=== PATIENT | male | born 2000 | race Caucasian/White ===

== ENCOUNTER 2021-12-12 12:48 | Observation (INO) | payer OTHER ==
[2021-12-12] MEDS ORDERED: MORPHINE 4 MG/ML SYR ONE (13:52)
[2021-12-12] MEDS ORDERED: ONDANSETRON 4 MG/2 ML VIAL ONE (13:52)
[2021-12-12] MEDS ORDERED: NA CHLORIDE 0.9% 1,000 ML ONE (13:52)
[2021-12-12] MEDS ORDERED: FAMOTIDINE 20 MG/2 ML VIAL IV ONE (13:53)
[2021-12-12 14:13] LABS: Absolute Lymphocytes (CBC) 0.7 K/uL (0.7-4.9); Lymphocytes % 18.9 % (15.3-44.8); MPV 8.7 fL (7.6-11.3); RBC Red Blood Cell Count 4.54 M/uL (4.33-5.43)
[2021-12-12 14:20] LABS: Bilirubin Direct 0.1 mg/dL (0-0.2); Bilirubin Total 0.4 mg/dL (0.2-1.0); Potassium 4.1 mmol/L (3.5-5.1); Protein, Total 7.5 g/dL (6.4-8.2)
[2021-12-12 14:53] LABS: SARS-COV-2 RT PCR NEGATIVE (NEGATIVE)
--- NOTE | 2021-12-12 16:17 | RAD REPORT ---
EXAM DESCRIPTION: CT - Abdomen Pelvis W Contrast - 12/12/2021 3:44 pm CLINICAL HISTORY: Abdominal pain. COMPARISON: None. TECHNIQUE: Computed axial tomography of the abdomen and pelvis was obtained. 100 cc Isovue-300 is ad ministered intravenously. Oral contrast was given. All CT scans are performed using dose optimization technique as appropriate and may include automated exposure control or mA/KV adjustment according to patient size. FINDINGS: The liver, spleen, pancreas, adrenals and kidneys appear unremarkable. There is no evidence of diverticulitis Proximal, mid and portion of the distal appendix are filled with contrast and are normal. The distal appendix is on opacified with contrast and is mildly thickened. No stranding within the adjacent fat. IMPRESSION: Proximal, mid and portion of the distal appendix are filled with contrast and are normal . The distal appendix is on opacified with contrast and is mildly thickened. No stranding within the adjacent fat. These findings could indicate a distal tip appendicitis and should be correlated clinically
[2021-12-12] MEDS ORDERED: PIPERACIL/TAZO 3.375 GM VIAL IV ONE (17:24)
[2021-12-12] MEDS ORDERED: NA CHLORIDE 0.9% 100 ML IV ONE (17:24)
[2021-12-12 17:37] LABS: Blood Morphology Comment NOT SEEN (NOT SEEN); Platelet Estimate ADEQ; White Blood Cell Scan OK (OK)
--- NOTE | 2021-12-12 17:40 | EDPHYS ---
Physician Documentation [facility] Name: Henry Vee Age: 21 yrs Sex: Male : 2000 Arrival Date: 12/12/2021 Time: 12:52 Bed 7 Private MD: ED Physician Tavo Manzano HPI: 12/12 13:55 This 21 yrs old Male presents to ER via Ambulatory with complaints of Abdominal Pain. cp 13:55 The patient presents with abdominal pain that is diffuse. cp 13:55 Onset: The symptoms/episode began/occurred 3 day(s) ago. cp 13:55 The symptoms radiate to low back. Associated signs and symptoms: Pertinent positives: cp anorexia, constipation, nausea, Pertinent negatives: diarrhea, dysuria, fever, hematuria, testicular pain, vomiting. The symptoms are described as constant. Historical: - Allergies: 13:34 No Known Allergies; ap3 - Home Meds: 13:34 None [Active]; ap3 - PMHx: 13:34 None; ap3 - Immunization history:: Client reports having NOT received the Covid vaccine. Flu vaccine is not up to date. - Social history:: Smoking status: Patient reports the use of cigarette tobacco products, denies chronic smoking, but will smoke occasionally, Patient uses alcohol, occasionally. ROS: 14:00 Constitutional: Negative for body aches, chills, fever, poor PO intake. cp 14:00 Respiratory: Negative for cough, shortness of breath, wheezing. cp 14:00 Abdomen/GI: Positive for abdominal pain, nausea, constipation, anorexia, Negative for cp vomiting, diarrhea. 14:00 Eyes: Negative for injury, pain, redness, and discharge. cp 14:00 ENT: Negative for drainage from ear(s), ear pain, sore throat, difficulty swallowing, difficulty handling secretions. 14:00 Cardiovascular: Negative for chest pain. 14:00 Back: Positive for radiated pain, of the low back. 14:00 : Negative for urinary symptoms, testicular pain 14:00 Neuro: Negative for altered mental status, headache, weakness. 14:00 All other systems are negative. Exam: 14:05 Constitutional: The patient appears in no acute distress, alert, awake, non-toxic, well cp developed, well nourished, uncomfortable. 14:05 Head/Face: Normocephalic, atraumatic. cp 14:05 Eyes: Periorbital structures: appear normal, Conjunctiva: normal, no exudate, no injection, Sclera: no appreciated abnormality, Lids and lashes: appear normal, bilaterally. 14:05 ENT: External ear(s): are unremarkable, Nose: is normal, Mouth: Lips: moist, Oral mucosa: moist, Posterior pharynx: Airway: no evidence of obstruction, patent. 14:05 Chest/axilla: Inspection: normal, Palpation: is normal, no crepitus, no tenderness. 14:05 Cardiovascular: Rate: normal, Rhythm: regular. 14:05 Respiratory: the patient does not display signs of respiratory distress, Respirations: normal, no use of accessory muscles, no retractions, labored breathing, is not present, Breath sounds: are clear throughout, no decreased breath sounds, no stridor, no wheezing. 14:05 Abdomen/GI: Inspection: abdomen appears normal, Bowel sounds: active, all quadrants, Palpation: soft, in all quadrants, moderate abdominal tenderness, in the umbilical area, right lower quadrant and left lower quadrant, rebound tenderness, is not appreciated, voluntary guarding, is elicited in the umbilical area, right lower quadrant and left lower quadrant. Vital Signs: 13:32 BP 133 / 85; Pulse 80; Resp 17; Temp 98.6; Pulse Ox 100% ; Weight 79.38 kg; Height 6 ap3 ft. 1 in. (185.42 cm); Pain 4/10; 13:40 BP 122 / 78; Pulse 67; Resp 17 S; Pulse Ox 100% on R/A; Pain 6/10; jg9 14:30 BP 136 / 80; Pulse 65; Resp 17; Pulse Ox 99% on R/A; Pain 5/10; jg9 14:45 BP 136 / 75; Pulse 68; Resp 17 S; Pulse Ox 97% on R/A; jg9 15:15 BP 118 / 71; Pulse 69; Resp 17 S; Pulse Ox 97% on R/A; jg9 16:15 BP 118 / 68; Pulse 70; Resp 16 S; Pulse Ox 97% on R/A; jg9 17:54 BP 111 / 72; Pulse 69; Resp 16; Pulse Ox 100% on R/A; ab2 18:45 BP 108 / 67; Pulse 59; Pulse Ox 98% on R/A; jg9 13:32 Body Mass Index 23.09 (79.38 kg, 185.42 cm) ap3 MDM: 13:47 Patient medically screened. cp 14:15 Differential diagnosis: appendicitis, cholecystitis, Cholelithiasis, diverticulitis, cp gastritis, non-specific abd pain, Pyelonephritis, Testicular Torsion, Ureterolithiasis, urinary tract infection. 16:31 Physician consultation: Lanre Addison MD was called at 16:30, left message on voicemail.cp 16:35 Data reviewed: vital signs, nurses notes, lab test result(s), radiologic studies, CT cp scan. 12/12 13:46 Order name: Basic Metabolic Panel; Complete Time: 15:00 12/12 15:00 Interpretation: Normal except: NA 134; GFR 79. 12/12 13:46 Order name: CBC with Diff 12/12 15:00 Interpretation: Normal except: WBC 3.80; PLT 133; MN% 24.3. 12/12 13:46 Order name: Hepatic Function; Complete Time: 15:00 12/12 13:46 Order name: Lipase; Complete Time: 15:00 12/12 13:46 Order name: COVID-19/FLU A+B (Document "Date of Onset" if Symptomatic); Complete Time: cp 16:24 12/12 16:25 Interpretation: Reviewed. 12/12 17:37 Order name: CBC Smear Scan [facility] 12/12 17:39 Order name: Urine Microscopic Only 12/12 17:39 Order name: Urine Microscopic Only [facility] 12/12 18:40 Order name: Urine Dipstick-Ancillary [facility] 12/12 19:24 Order name: Basic Metabolic Panel [facility] 12/12 19:24 Order name: Basic Metabolic Panel [facility] 12/12 19:25 Order name: CBC with Automated Diff [facility] 12/12 19:25 Order name: Lipase [facility] 12/12 19:25 Order name: Lipase [facility] 12/12 13:46 Order name: IV Saline Lock; Complete Time: 13:48 12/12 13:46 Order name: Labs collected and sent; Complete Time: 13:53 12/12 14:04 Order name: CT Abd/Pelvis - PO and IV Contrast; Complete Time: 16:24 12/12 16:25 Interpretation: Report reviewed. cp 12/12 17:39 Order name: Urine Dipstick-Ancillary (obtain specimen); Complete Time: 18:54 cp 12/12 19:24 Order name: NPO [facility] 12/12 19:25 Order name: Liver (Hepatic) Function [facility] 12/12 19:25 Order name: Liver (Hepatic) Function ED[facility] 12/12 19:25 Order name: CBC with Automated Diff EDMS Administered Medications: 13:50 Drug: NS 0.9% 1000 ml Route: IV; Rate: 1 bolus; Site: left antecubital; jg9 15:01 Follow up: IV Status: Completed infusion; IV Intake: 1000ml jg9 13:53 Drug: Zofran (Ondansetron) 4 mg Route: IVP; Site: left antecubital; jg9 15:01 Follow up: Response: No adverse reaction jg9 13:55 Drug: morphine 4 mg {Note: RASS-o.} Route: IVP; Site: left antecubital; jg9 15:01 Follow up: Response: No adverse reaction; Pain is decreased jg9 13:55 Drug: Pepcid (famotidine) 20 mg Route: IVP; Site: left antecubital; jg9 15:01 Follow up: Response: No adverse reaction; Pain is decreased jg9 17:25 Drug: Zosyn (piperacillin-tazobactam) 3.375 grams Route: IVPB; Infused Over: 60 mins; ab2 Site: left antecubital; 18:30 Follow up: IV Status: Completed infusion; IV Intake: 100ml jg9 Disposition: 19:40 Co-signature as Attending Physician, Tavo Manzano MD I agree with the assessment and kdr plan of care. Disposition Summary: 12/12/21 17:39 Hospitalization Ordered Hospitalization Status: Observation cp Provider: Lnare Addison cp Location: Telemetry/MedSurg (observation) cp Condition: Stable cp Problem: new cp Symptoms: have improved cp Bed/Room Type: Standard cp Room Assignment: 204(12/12/21 19:56) mw Diagnosis - Unspecified acute appendicitis cp Forms: - Medication Reconciliation Form cp - SBAR form cp Signatures: Dispatcher [facility] Mary Garcia RN RN mw Rittger, Kevin, MD MD [facility] Kehinde Pressley PA PA cp Hilary Hernandez, RN RN ap3 Paige Cain RN RN jg9 Tony Kay2 Corrections: (The following items were deleted from the chart) 17:15 16:31 NPO ordered. cp cp 19:56 17:39 cp mw
--- NOTE | 2021-12-12 17:40 | ER ---
Nurse's Notes [facility] Name: Henry Vee Age: 21 yrs Sex: Male : 2000 Arrival Date: 12/12/2021 Time: 12:52 Bed 7 Private MD: Diagnosis: Unspecified acute appendicitis Presentation: 12/12 13:32 Chief complaint: Patient states: he started having abdominal pain Sunday12/09/21. ap3 Patient reports the pain is primarily in his left lower quadrant with radiation into his epigastric area. Last BM is reported to be 12/10/2021. Coronavirus screen: At this time, the client does not indicate any symptoms associated with coronavirus-19. Ebola Screen: No symptoms or risks identified at this time. Initial Sepsis Screen: Does the patient meet any 2 criteria? No. Patient's initial sepsis screen is negative. Does the patient have a suspected source of infection? No. Patient's initial sepsis screen is negative. Risk Assessment: Do you want to hurt yourself or someone else? Patient reports no desire to harm self or others. Onset of symptoms was December 09, 2021. 13:32 Method Of Arrival: Ambulatory ap3 13:32 Acuity: SHARON 3 ap3 Triage Assessment: 13:34 General: Appears in no apparent distress. Behavior is calm, cooperative, appropriate ap3 for age. Pain: Complains of pain in left lower quadrant Pain radiates to epigastric area, right upper quadrant, left upper quadrant and right lower quadrant Pain began gradually, 2-3 days ago. Neuro: Level of Consciousness is awake, alert, obeys commands, Oriented to person, place, time, situation, Gait is steady. GI: Reports lower abdominal pain, upper abdominal pain, nausea. Historical: - Allergies: 13:34 No Known Allergies; ap3 - Home Meds: 13:34 None [Active]; ap3 - PMHx: 13:34 None; ap3 - Immunization history:: Client reports having NOT received the Covid vaccine. Flu vaccine is not up to date. - Social history:: Smoking status: Patient reports the use of cigarette tobacco products, denies chronic smoking, but will smoke occasionally, Patient uses alcohol, occasionally. Screenin:35 Abuse screen: Denies threats or abuse. Nutritional screening: No deficits noted. ap3 Tuberculosis screening: No symptoms or risk factors identified. Fall Risk None identified. No fall in past 12 months (0 pts). Assessment: 13:47 GI: Bowel sounds present X 4 quads. Abd is soft Abdomen is tender to palpation X 4 jg9 quads. 14:35 Reassessment: Patient states symptoms have improved. jg9 17:00 Reassessment: No changes from previously documented assessment. jg9 19:27 General: Appears in no apparent distress. Behavior is calm, cooperative. Neuro: No sm5 deficits noted. Level of Consciousness is awake, alert, obeys commands, Oriented to person, place, time, situation. Cardiovascular: No deficits noted. Capillary refill < 3 seconds Patient's skin is warm and dry. Respiratory: No deficits noted. Airway is patent Trachea midline Respiratory effort is even, unlabored. GI: Reports upper abdominal pain. 20:43 Reassessment: Patient and/or family updated on plan of care and expected duration. Pain sm5 level reassessed. Vital Signs: 13:32 BP 133 / 85; Pulse 80; Resp 17; Temp 98.6; Pulse Ox 100% ; Weight 79.38 kg; Height 6 ap3 ft. 1 in. (185.42 cm); Pain 4/10; 13:40 BP 122 / 78; Pulse 67; Resp 17 S; Pulse Ox 100% on R/A; Pain 6/10; jg9 14:30 BP 136 / 80; Pulse 65; Resp 17; Pulse Ox 99% on R/A; Pain 5/10; jg9 14:45 BP 136 / 75; Pulse 68; Resp 17 S; Pulse Ox 97% on R/A; jg9 15:15 BP 118 / 71; Pulse 69; Resp 17 S; Pulse Ox 97% on R/A; jg9 16:15 BP 118 / 68; Pulse 70; Resp 16 S; Pulse Ox 97% on R/A; jg9 17:54 BP 111 / 72; Pulse 69; Resp 16; Pulse Ox 100% on R/A; ab2 18:45 BP 108 / 67; Pulse 59; Pulse Ox 98% on R/A; jg9 13:32 Body Mass Index 23.09 (79.38 kg, 185.42 cm) ap3 ED Course: 12:52 Patient arrived in ED. kz 13:34 Triage completed. ap3 13:35 Arm band placed on left wrist. ap3 13:36 [facility]. cp 13:36 Tavo Manzano MD is Attending Physician. cp 13:45 Paige Cain, STARLA is Primary Nurse. jg9 13:45 Inserted saline lock: 18 gauge in left antecubital area, using aseptic technique. Blood jg9 collected. 13:47 Patient has correct armband on for positive identification. Bed in low position. Call jg9 light in reach. 13:53 COVID-19/FLU A+B (Document "Date of Onset" if Symptomatic) Sent. ab2 13:53 Lipase Sent. ab2 13:53 Basic Metabolic Panel Sent. ab2 13:53 CBC with Diff Sent. ab2 13:53 Hepatic Function Sent. ab2 14:35 No apparent distress. Resting quietly. jg9 15:43 CT Abd/Pelvis - PO and IV Contrast In Process Unspecified. EDMS 17:00 No apparent distress. Resting quietly. jg9 17:09 Awaiting re-evaluation by ER provider. jg9 17:39 Lanre Addison MD is Hospitalizing Provider. cp 18:22 Urine Microscopic Only Sent. jg9 20:44 No provider procedures requiring assistance completed. Patient admitted, IV remains in sm5 place. Administered Medications: 13:50 Drug: NS 0.9% 1000 ml Route: IV; Rate: 1 bolus; Site: left antecubital; jg9 15:01 Follow up: IV Status: Completed infusion; IV Intake: 1000ml jg9 13:53 Drug: Zofran (Ondansetron) 4 mg Route: IVP; Site: left antecubital; jg9 15:01 Follow up: Response: No adverse reaction jg9 13:55 Drug: morphine 4 mg {Note: RASS-o.} Route: IVP; Site: left antecubital; jg9 15:01 Follow up: Response: No adverse reaction; Pain is decreased jg9 13:55 Drug: Pepcid (famotidine) 20 mg Route: IVP; Site: left antecubital; jg9 15:01 Follow up: Response: No adverse reaction; Pain is decreased jg9 17:25 Drug: Zosyn (piperacillin-tazobactam) 3.375 grams Route: IVPB; Infused Over: 60 mins; ab2 Site: left antecubital; 18:30 Follow up: IV Status: Completed infusion; IV Intake: 100ml jg9 Intake: 15:01 IV: 1000ml; Total: 1000ml. jg9 18:30 IV: 100ml; Total: 1100ml. jg9 Outcome: 17:39 Decision to Hospitalize by Provider. cp 20:44 Admitted to Med/surg accompanied by nurse, via wheelchair, with chart. [facility] 20:44 Condition: stable 20:44 Instructed on the need for admit. 20:44 Patient left the ED. [facility] Signatures: Dispatcher [employer] EDMS Kehinde Pressley PA PA cp Prokisch, Amanda RN RN ap3 Marybel Salcedo RN RN sm5 Paige Cain RN RN jg9 Tony Kay Kelly kz
[2021-12-12 18:33] LABS: Urine Bacteria <20 /HPF (NONE SEEN); Urine RBC <5 /HPF (NONE SEEN)
[2021-12-12 18:41] LABS: Urine Blood Negative (Negative); Urine Glucose Negative (Negative); Urine Protein Negative (Negative)
[2021-12-12] MEDS ORDERED: ONDANSETRON 4 MG/2 ML VIAL IV PRN (19:19)
[2021-12-12] MEDS ORDERED: MORPHINE 4 MG/ML SYR IV PRN (19:19)
[2021-12-12 20:59] VITALS: BMI 23.1
[2021-12-12] MEDS: NA CHLORIDE 0.9% 1,000 ML IV SCH (21:16)
[2021-12-12 21:25] VITALS: O2SAT 98
[2021-12-13] MEDS: PIPER TAZO 3.375 GM in NA CHLORIDE 0.9% 100 ML IV SCH ×2 (01:22→08:24)
[2021-12-13] MEDS: NA CHLORIDE 0.9% 1,000 ML IV SCH (04:44)
[2021-12-13 05:44] LABS: Absolute Lymphocytes (CBC) 0.8 K/uL (0.7-4.9); Lymphocytes % 34.6 % (15.3-44.8); MPV 8.6 fL (7.6-11.3); RBC Red Blood Cell Count 4.35 M/uL (4.33-5.43)
[2021-12-13 06:04] LABS: Albumin 3.4 g/dL (3.4-5.0); Bilirubin Direct 0.1 mg/dL (0-0.2); Bilirubin Total 0.5 mg/dL (0.2-1.0); Potassium 4.2 mmol/L (3.5-5.1); Protein, Total 6.5 g/dL (6.4-8.2)
[2021-12-13 06:19] LABS: Blood Morphology Comment NOT SEEN (NOT SEEN); Platelet Estimate DECR; White Blood Cell Scan OK (OK)
--- NOTE | 2021-12-13 13:16 | P.HP ---
Date of Service: 12/13/21 PC: This 21-year-old male presented to the emergency room with a complaint of backache lower abdominal pain and not feeling well since Sunday. HPC: Patient states he is otherwise healthy male. PSHx: Negative PMHx: Negative Social Hx: No known allergies, does not take any medications, has not had any vaccines. Sys R: Has had some headache, mild nausea. No trouble urinating. O/E: Awake alert vital signs are stable at the moment. Comfortable and interactive. HEENT: Nonicteric Chest: Chest movement equal bilaterally Abd: Abdomen is soft, no tenderness no guarding or rebound Downey: Intact Data: CT scan showed "distal tip appendicitis". Clinically the patient has a benign abdomen at the moment. He has tested positive for flu. White cell count 2000 and no shift. Impression: Nonsurgical abdomen, influenza Plan: The patient does not require surgical intervention at this time. I will asked my medical colleague to evaluate the patient. Anticipate discharge this afternoon.
--- NOTE | 2021-12-13 15:03 | P.CNS ---
Date of Consult: 12/13/21 Reason for Consult: flu Requesting Physician: Lanre Addison Chief Complaint: abdominal pain History of Present Illness: 21yo M, no past medical history, presented to ED due to abdominal pain for a few days. CT with possible inflammation of the appendix. He was admitted to the general surgery service for possible appendicitis. He did not have any leukocytosis, remained afebrile, and had improvement of his symptoms. General surgery evaluated the patient and did not feel patient had appendicitis. Patient was subsequently found to be positive for influenza. I was consulted for management of influenza. Patient is otherwise doing well, plan for discharge home today Allergies No Known Allergies Allergy (Unverified 12/12/21 20:05) Home Medications: NK [No Home Meds] 12/12/21 - Past Medical/Surgical History Diabetic: No -: Arthritis L knee -: concussion -: Tonsilectomy - Social History Smoking Status: Current some day smoker Alcohol use: No Place of Residence: Home Review of Systems 10-point ROS is otherwise unremarkable Physical Examination Temp Pulse Resp BP Pulse Ox 97.2 F 50 16 105/60 98 12/13/21 12:00 12/13/21 12:00 12/13/21 12:00 12/13/21 12:00 12/13/21 12:00 General: Alert, In no apparent distress, Oriented x3 HEENT: Sclerae nonicteric Neck: Supple, No LAD Respiratory: Clear to auscultation bilaterally, Normal air movement Cardiovascular: No edema, Regular rate/rhythm Gastrointestinal: Soft and benign, Non-distended Musculoskeletal: No tenderness Integumentary: No rashes, Cyanosis Neurological: Normal speech, Normal strength at 5/5 x4 extr, Normal affect Laboratory Data (last 24 hrs) 12/12/21 13:50: WBC 3.80 L, Hgb 15.2, Hct 43.0, Plt Count 133 L Physician Review Additional Text: Problem list Flu A positive Abdominal pain Patient with symptoms for 4 days, no respiratory issues, does not feel short of breath, afebrile, no leukocytosis Patient is young and otherwise healthy, low risk for morbidity/mortality from influenza Given the above, patient does not meet typical criteria for treatment of influenza At this time, patient does not require medication for influenza Okay to discharge home from my standpoint. recommended rest, anti-pyretics if needed Time Spent Managing Pts care (In Minutes): 35
[2021-12-13 16:30] VITALS: BP 131/79; TEMP 97.4
== END 2021-12-13 16:28 | disposition home or self-care (01) ==
LOC: ER 12:48 → ERHOLD 19:23 → 2ND 20:36
PROVIDERS: ADMIT Surgery; ATTEND Surgery
DX: R10.9 Unspecified abdominal pain (principal); J10.1 Influenza due to other identified influenza virus with other respiratory manifestations; M17.12 Unilateral primary osteoarthritis, left knee; F17.210 Nicotine dependence, cigarettes, uncomplicated
CPT/HCPCS: 85025 ×2; 80048 ×2; 36415; 80076 ×2; 83690 ×2; 0240U; 74177; 94010; Q9967; J2543 ×3; J7030 ×3; J2405; 81003; 81015; 96361; 96365; 96375; 99285